=== PATIENT | female | born 1990 | race Caucasian/White ===

== ENCOUNTER 2016-04-11 19:27 | Emergency (ER) | payer OTHER ==
[~2016-04-11] VITALS: Ht 165.1 cm; Wt 99.8 kg
[~2016-04-11 19:27] MED LIST: ABILIFY 2MG2 MG PO; ATIVAN0.5 MG PO; AUGMENTIN 875-1 EACH PO; BACTRIM DS 8001 TAB PO; CIPRO 500MG (E500 MG PO; CIPRO 500MG TA500 MG PO; CIPRO500 MG PO; ENDOCET 325 MG-1 TA1 PO; HYDROCODON-ACET15 ML PO; HYDROCODONE-ACE15 ML PO; HYDROCODONE/ACE1 TA1 PO; MACROBID100 MG PO; MELATONIN5 M3 PO; NASONEX0.05 MG/Ac IN; NORCO 325 MG-51 TAB PO; NOVAPLUS V0.09 MG/Ac INH; ONDANSETRON8 M1 PO; OXYBUTYNIN CHLO10 MG PO; PANTOPRAZOLE SO40 MG PO; PERCOCET 325 MG1 TA2 PO; PERCOCET 5-3251 EACH PO; ROBITUSSIN W/CO10 ML PO; TORADOL10 MG PO; TYLENOL #31 TAB PO; VITAMIN D50000 IU PO; ZOFRAN 4 MG TABL4 MG PO; ZOFRAN ODT4 MG SL
--- NOTE | 2016-04-11 19:57 | ED THROAT/DENTAL COMPLAINT ---
History of Present Illness General Chief Complaint: Sore Throat, Dental Pain Stated Complaint: SORE THROAT Source: patient Exam Limitations: no limitations Vital Signs & Intake/Output Vital Signs & Intake/Output Vital Signs Date Time Temp Pulse Resp B/P Pulse O2 O2 Flow FiO2 Ox Delivery Rate 04/11 Room Air 04/11 1930 100.4 114 18 146/83 96 Room Air Allergies Coded Allergies: ceftriaxone (Intermediate, THROAT TIGHTNESS 08/27/15) tramadol (Intermediate, THROAT FELT ITCHY, DRY EYES 08/27/15) adhesive tape (Mild, REDNESS 08/27/15) latex (Mild, RASH 08/27/15) Iodinated Contrast Media - Oral and (IODINATED CONTRAST MEDIA - IV DYE) (SHAKING , VOMITING AND RASH 08/27/15) ibuprofen (DIARRHEA, SEVERE ABD PAIN 08/27/15) nitrofurantoin (VOMITING, NOT EFFECTIVE 08/27/15) cyclobenzaprine (Severe, HALLUCINATIONS 08/27/15) Triage Note: PT TO TRIAGE WITH C/O THROAT PAIN 8/10, UNABLE TO SWALLOW DUE TO PAIN, FEVER. TEMP 100.4 IN TRIAGE. PT WAS SEEN AT [facility] TODAY, STREP TEST WAS NEGATIVE, AND PT GOT RX FOR AMOXICILLIN. Triage Nurses Notes Reviewed? yes Onset: Abrupt Duration: day(s): (2), constant, continues in ED Timing: recent history Injury Environment: home Severity: moderate, severe No Modifying Factors: none : No Patient currently breastfeeds: No HPI: 25-year-old female comes into emergency room for evaluation of sore throat is been going on for the past 2 days. Patient was seen at yesterday and given amoxicillin tablets. Patient has not been able to swallow them. Some spitting up of phlegm. Sharp pain. Right side of throat. Associated fever. Denies any vomiting. Hurts to swallow. Denies any other associated symptoms. (DANIS LACY) Reconcile Medications Amoxicillin 400 MG/5 ML SUSP.RECON 10 ML PO BID STREP Amoxicillin/Potassium Clav (Augmentin 875-125 Tablet) 1 EACH TABLET 1 TAB PO BID dental Aripiprazole (Abilify) 2 MG TAB 1 TAB PO TID BIPOLAR Hydrocodone/Acetaminophen (Hycet 7.5 MG-325 MG/15 Ml Soln) 7.5 MG-325 MG/15 ML SOLUTION 10 ML PO Q4-6 PRN PAIN Hydrocodone/Acetaminophen (Hydrocodone-Acetamin 5-163/7.5) 5 MG-163 MG/7.5 ML ( 7.5 ML) SOLUTION 5-10 ML PO Q6P PRN PAIN Hydrocodone/Acetaminophen (Hydrocodon-Acetamin 7.5-325/15) 15 ML SOLUTION 0.5- 1 TBSP PO Q6P PRN pain Oxycodone HCl/Acetaminophen (Percocet 5-325 MG Tablet) 1 EACH TABLET 1 TAB PO BID PRN breakthrough pain (CLYDE WILSON,LATOYA) Past History Travel History Traveled to [place] past 21 day No Medical History Any Pertinent Medical History? see below for history Neurological: NONE EENT: NONE Cardiovascular: NONE Respiratory: asthma Gastrointestinal: PANCREATITIS Hepatic: SLUDGE IN GALLBLADDER Renal: RT HYDRONEPHROSIS Musculoskeletal: NONE Psychiatric: anxiety, substance abuse, mood disorder Endocrine: NONE Blood Disorders: NONE Cancer(s): NONE EMT DISPATCHER/Reproductive: NONE, states unable to get has tried. History of MRSA: No History of VRE: No History of CDIFF: No Surgical History Surgical History: KIDNEY STENTS RIGHT URETER RECONSTRUCTION Psychosocial History Who do you live with Family Services at Home None What is your primary language Spanish Tobacco Use: Current Daily Use Daily Tobacco Use Amount/Type: => 5 Cigarettes daily Family History Family History, If Any: FATHER FH: hypertension BROTHER, Age 10-15. FH: hypertension AUNT FH: liver cancer Kidney stone Urinary tract obstruction AUNT NO 2 FH: breast cancer Hx Contributory? No (DANIS LACY) Review of Systems Review of Systems Constitutional: Reports: see HPI. EENTM: Reports: see HPI. Respiratory: Reports: no symptoms. Cardiovascular: Reports: no symptoms. GI: Reports: no symptoms. Genitourinary: Reports: no symptoms. Musculoskeletal: Reports: no symptoms. Skin: Reports: no symptoms. Neurological/Psychological: Reports: no symptoms. Hematologic/Endocrine: Reports: no symptoms. Immunologic/Allergic: Reports: no symptoms. All Other Systems: Reviewed and Negative (DANIS LACY) Physical Exam Physical Exam General Appearance: well developed/nourished, alert, awake, comfortable, mild distress Head: atraumatic, normal appearance Eyes: Bilateral: normal appearance. Nose: normal inspection Mouth/Throat: pharyngeal erythema, right tonsil 2+, swollen, erythematous, exudate,, Uvula midline Neck: normal inspection, lymphadenopathy (R) Cardiovascular/Respiratory: regular rate/rhythm, no respiratory distress Back: normal inspection Neurologic/Psych: awake, alert, oriented x 3, normal gait, normal mood/affect Skin: intact, normal color Core Measures ACS in differential dx? No Severe Sepsis Present: No Septic Shock Present: No (DANIS LACY) Progress Differential Diagnosis: aspirated tooth, carious tooth, epiglottitis, Ludwigs angina, meningitis, odontogenic abscess, george-tonsillar abscess, pharyngeal for. body, stomatitis/gingivitis, strep pharyngitis, tooth fracture Plan of Care: Orders Procedure Date/time Status HUMAN BETA HCG SCREEN 04/11 1955 Complete CBC WITHOUT DIFFERENTIAL 04/11 1955 Complete BASIC METABOLIC PANEL 04/11 1955 Complete THROAT CULTURE W/QUICK STREP 04/11 1928 Complete Laboratory Tests 04/11/16 2000: Anion Gap 11, Estimated GFR > 60, BUN/Creatinine Ratio 11.4, Glucose 91, Calcium 8.6, Total Beta HCG NEGATIVE, CBC w Diff NO MAN DIFF REQ, RBC 4.83, MCV 91.9, MCH 30.6, RDW 13.8, MPV 7.9, Gran % 70.4, Lymphocytes % 22.4, Monocytes % 6.8, Eosinophils % 0, Basophils % 0.4, Absolute Granulocytes 6.0, Absolute Lymphocytes 1.9, Absolute Monocytes 0.6, Absolute Eosinophils 0, Absolute Basophils 0, PUBS MCHC 33.3 Diagnostic Imaging: Viewed by Me: CT Scan. Discussed w/RAD: CT Scan. Radiology Impression: EXAM TYPE: CAT - CT NECK W IV CONTRAST EXAMINATION: CT NECK WITH CONTRAST CLINICAL INFORMATION: Tonsillitis versus abscess. Unilateral swelling right tonsil. COMPARISON: None TECHNIQUE: Axial images of the neck were obtained with intravenous contrast. 94 mL Optiray 320 were administered without adverse reaction reported. Reformatted images were reviewed. DLP: 440 mGy-cm FINDINGS: There is mild asymmetric fullness of right tonsillar tissue in the oropharynx. No discrete/drainable fluid collection is noted. No other areas of pharyngeal or laryngeal swelling. The bilateral parotid glands, submandibular glands, and thyroid gland are unremarkable. Scattered cervical lymph nodes, with nonspecific prominence of the right jugulodigastric node, measuring 2.2 cm. No retropharyngeal soft tissue swelling. Visualized portions of the brain are unremarkable. The orbits are unremarkable. Visualized portions of the lungs and mediastinum are unremarkable. No acute osseous abnormalities. IMPRESSION: 1. Mild asymmetric fullness of right oropharyngeal tonsillar tissue, suspicious for local inflammation. No evidence of discrete/drainable abscess. 2. Nonspecific enlargement of the right jugulodigastric node, measuring 2.2 cm. This may be reactive in nature. DICTATED BY: GINGER ROSALES MD DATE/TIME DICTATED:04/11/162111 MILLINERY TEACHER:MARY DATE/TIME TRANSCRIBED:04/11/162111 Comments: 04/11/2016 9:43:18 PM Patient feels much better after IV medications. No evidence of abscess. Patient just has strep tonsillitis. Able to swallow liquids. Return if any other concerns. (EDDIE COLON,DANIS) Departure Departure Disposition: HOME OR SELF CARE Condition: Stable Clinical Impression Primary Impression: Strep tonsillitis Referrals: PATIENT HAS NO PRIMARY CARE DR (PCP/Family) Additional Instructions: Take amoxicillin as prescribed. Rest. Drink plenty of fluids. Motrin. Follow-up with primary care . Please go over all results of today's visit with your primary care doctor. Contact your primary care doctor to let them know you were here in the emergency room. There may be nonspecific findings which may not be related to your visit today here in the emergency room but may require further evaluation and chronic monitoring by your primary care doctor. If you had a laceration today the chance of foreign body always remains. You should follow-up with your primary care doctor for recheck in 3-5 days for a wound check. If you had an x-ray done there is a chance that a fracture could have been missed on initial read and you should follow-up with your primary care doctor for repeat x-rays if symptoms persist. If your blood pressure was elevated here in the emergency room please have rechecked by her primary care doctor within the next 48 hours by your primary care doctor. If you were prescribed a narcotic here in the emergency room or any type of controlled substances you're not allowed to drive while taking this medication or operate any type of heavy machinery. Narcotics can make you feel lightheaded dizziness nausea and can cause constipation. You may need to miner pick a stool softener. Thank you for choosing [facility] emergency room. Please return to the emergency room immediately if you have any other concerns worsening of symptoms. Departure Forms: Customer Survey General Discharge Information (DANIS LACY) Departure Prescriptions: Current Visit Scripts Hydrocodone/Acetaminophen (Hycet 7.5 MG-325 MG/15 Ml Soln) 10 ML PO Q4-6 PRN PAIN #100 ML Amoxicillin 10 ML PO BID #200 ML Hydrocodone/Acetaminophen (Hydrocodone-Acetamin 5-163/7.5) 5-10 ML PO Q6P PRN PAIN #100 ML PA/FUR COMBER Co-Sign Statement Statement: ED Attending supervision documentation- [] I saw and evaluated the patient. I have also reviewed all the pertinent lab results and diagnostic results. I agree with the findings and the plan of care as documented in the PA's/FUR COMBER's documentation. [X] I have reviewed the ED Record and agree with the PA's/FUR COMBER's documentation. [] Additions or exceptions (if any) to the PAs/FUR COMBER's note and plan are summarized below: [] (CLYDE WILSON,LATOYA)
[2016-04-11 20:07] LABS: ABSOLUTE BASOPHIL COUNT 0 /CUMM (0.0-0.2); ABSOLUTE EOSINOPHIL COUNT 0 /CUMM (0.0-0.7); ABSOLUTE LYMPH COUNT 1.9 /CUMM (1.2-3.4); ABSOLUTE MONOCYTE COUNT 0.6 /CUMM (0.10-0.60); BASOPHIL % 0.4 % (0.0-2.0); EOSINOPHIL % 0 % (0-5); GRANULOCYTE % 70.4 % (42.2-75.2); HEMATOCRIT 44.4 % (37-47); MEAN CORPUSCULAR HGB 30.6 PG (27.0-31.0); MEAN CORPUSCULAR HGB CONC 33.3 G/DL (33.0-37.0); MEAN CORPUSCULAR VOLUME 91.9 FL (81.0-99.0); MEAN PLATELET VOLUME 7.9 FL (7.4-10.4); PLATELET COUNT 225 /CUMM (130-400); RBC DISTRIBUTION WIDTH 13.8 % (11.5-14.5); RED BLOOD CELL CT 4.83 /CUMM (4.20-5.40); WHITE BLOOD CELL COUNT 8.6 /CUMM (4.8-10.8)
--- NOTE | 2016-04-11 21:23 | CT SCAN REPORT ---
EXAMINATION: CT NECK WITH CONTRAST CLINICAL INFORMATION: Tonsillitis versus abscess. Unilateral swelling right tonsil. COMPARISON: None TECHNIQUE: Axial images of the neck were obtained with intravenous contrast. 94 mL Optiray 320 were administered without adverse reaction reported. Reformatted images were reviewed. DLP: 440 mGy-cm FINDINGS: There is mild asymmetric fullness of right tonsillar tissue in the oropharynx. No discrete/drainable fluid collection is noted. No other areas of pharyngeal or laryngeal swelling. The bilateral parotid glands, submandibular glands, and thyroid gland are unremarkable. Scattered cervical lymph nodes, with nonspecific prominence of the right jugulodigastric node, measuring 2.2 cm. No retropharyngeal soft tissue swelling. Visualized portions of the brain are unremarkable. The orbits are unremarkable. Visualized portions of the lungs and mediastinum are unremarkable. No acute osseous abnormalities. IMPRESSION: 1. Mild asymmetric fullness of right oropharyngeal tonsillar tissue, suspicious for local inflammation. No evidence of discrete/drainable abscess. 2. Nonspecific enlargement of the right jugulodigastric node, measuring 2.2 cm. This may be reactive in nature.
[2016-04-11] MEDS ORDERED: AMOXICILLI400 MG/51 PO (21:33)
[2016-04-11] MEDS ORDERED: HYDROCODONE AC PO (21:37)
[2016-04-11 21:55] VITALS: BP 140/58
[2016-04-11] MEDS ORDERED: HYCET 7.5 MG-3473 ML PO (23:40)
== END 2016-04-11 21:56 ==
LOC: ERH 19:27
PROVIDERS: Physician Assistant Medical
DX: J03.00 Acute streptococcal tonsillitis, unspecified (principal)
CPT/HCPCS: 96374; 96375; J1100; J1885

== ENCOUNTER 2016-04-26 11:36 | Emergency (ER) | payer OTHER ==
[~2016-04-26] VITALS: Ht 165.1 cm; Wt 97.5 kg
[~2016-04-26 11:36] MED LIST changes: +AMOXICILLI400 MG/51 PO; +HYCET 7.5 MG-3473 ML PO; +HYDROCODONE AC PO
[2016-04-26 11:49] VITALS: BP 140/93
--- NOTE | 2016-04-26 12:12 | ED THROAT/DENTAL COMPLAINT ---
History of Present Illness General Chief Complaint: Sore Throat, Dental Pain Stated Complaint: TOOTH PAIN Source: patient, old records Exam Limitations: no limitations Vital Signs & Intake/Output Vital Signs & Intake/Output Vital Signs Date Time Temp Pulse Resp B/P Pulse O2 O2 Flow FiO2 Ox Delivery Rate 04/26 1149 97.7 119 16 140/93 97 Room Air Allergies Coded Allergies: ceftriaxone (Intermediate, THROAT TIGHTNESS 08/27/15) tramadol (Intermediate, THROAT FELT ITCHY, DRY EYES 08/27/15) adhesive tape (Mild, REDNESS 08/27/15) latex (Mild, RASH 08/27/15) Iodinated Contrast Media - Oral and (IODINATED CONTRAST MEDIA - IV DYE) (SHAKING , VOMITING AND RASH 08/27/15) ibuprofen (DIARRHEA, SEVERE ABD PAIN 08/27/15) nitrofurantoin (VOMITING, NOT EFFECTIVE 08/27/15) cyclobenzaprine (Severe, HALLUCINATIONS 08/27/15) Reconcile Medications Aripiprazole (Abilify) 2 MG TABLET 1 TAB PO DAILY BIPOLAR (Reported) Hydrocodone/Acetaminophen (Vicodin 5-300 MG Tablet) 5 MG-300 MG TABLET 1 TAB PO Q6P PRN severe pain Triage Note: PT STATES SHE HAS TOOTH PAIN AND HAS BEEN TAKING TYLENOL AND MOTRIN. PT STATES SHE IS NOT SUPPOSE TO TAKE MOTRIN BUT SHE DID BECAUSE HER PAIN IS SO BAD. Triage Nurses Notes Reviewed? yes Onset: Last week Duration: day(s):, constant, continues in ED Timing: recent history Injury Environment: home Severity: moderate Modifying Factors: Improves With: medication. Worsens With: eating, movement. LMP (ages 10-50): unknown : No Patient currently breastfeeds: No HPI: Several weeks prior to admission patient has had issues with her wisdom teeth that are erupting. It is now causing pain to the proximal tooth that it impacts worse with chewing improved with analgesic medication. She denies fever chills nausea vomiting diarrhea abdominal pain chest pain shortness of breath headache dysuria rash bleeding . Past History Travel History Traveled to [place] past 21 day No Medical History Any Pertinent Medical History? see below for history Neurological: NONE EENT: NONE Cardiovascular: NONE Respiratory: asthma Gastrointestinal: PANCREATITIS Hepatic: SLUDGE IN GALLBLADDER Renal: RT HYDRONEPHROSIS Musculoskeletal: NONE Psychiatric: anxiety, substance abuse, mood disorder Endocrine: NONE Blood Disorders: NONE Cancer(s): NONE FELT PULLER/Reproductive: NONE, states unable to get has tried. History of MRSA: No History of VRE: No History of CDIFF: No Surgical History Surgical History: KIDNEY STENTS RIGHT URETER RECONSTRUCTION Psychosocial History Who do you live with Family Services at Home None What is your primary language Slovak Tobacco Use: Current Daily Use Daily Tobacco Use Amount/Type: => 5 Cigarettes daily ETOH Use: denies use Illicit Drug Use: marijuana Family History Family History, If Any: FATHER FH: hypertension BROTHER, Age 10-15. FH: hypertension AUNT FH: liver cancer Kidney stone Urinary tract obstruction AUNT NO 2 FH: breast cancer Hx Contributory? No Review of Systems Review of Systems Constitutional: Reports: no symptoms. EENTM: Reports: see HPI, tooth pain. Respiratory: Reports: no symptoms. Cardiovascular: Reports: no symptoms. GI: Reports: no symptoms. Genitourinary: Reports: no symptoms. Musculoskeletal: Reports: no symptoms. Skin: Reports: no symptoms. Neurological/Psychological: Reports: no symptoms. Hematologic/Endocrine: Reports: no symptoms. Immunologic/Allergic: Reports: no symptoms. All Other Systems: Reviewed and Negative Physical Exam Physical Exam General Appearance: well developed/nourished, alert, awake, anxious, mild distress Head: atraumatic, normal appearance Eyes: Bilateral: normal appearance, PERRL, EOMI. Ears: Bilateral: canal normal, Tympanic normal. Nose: normal inspection Mouth/Throat: dental tenderness Neck: normal inspection, supple, full range of motion, trachea midline Cardiovascular/Respiratory: normal breath sounds, normal peripheral pulses, regular rate/rhythm, no respiratory distress Back: normal inspection, normal range of motion, no vertebral tenderness Neurologic/Psych: no motor/sensory deficits, awake, alert, oriented x 3, normal gait, normal mood/affect, pre assembly wirer II-XII nml as tested Skin: intact, normal color, warm/dry Core Measures ACS in differential dx? No Severe Sepsis Present: No Septic Shock Present: No Progress Differential Diagnosis: carious tooth, odontogenic abscess, tooth fracture Plan of Care: dental f/u analgesia Departure Departure Time of Disposition: 1214 Disposition: HOME OR SELF CARE Condition: Stable Clinical Impression Primary Impression: Dental impaction Referrals: PATIENT HAS NO PRIMARY CARE DR (PCP/Family) Departure Forms: Customer Survey General Discharge Information Prescriptions: Current Visit Scripts Hydrocodone/Acetaminophen (Vicodin 5-300 MG Tablet) 1 TAB PO Q6P PRN severe pain #15 TAB
[2016-04-26] MEDS ORDERED: ABILIFY2 MG PO (12:19)
[2016-04-26] MEDS ORDERED: VICODIN 5-3001 EACH PO (12:20)
== END 2016-04-26 13:07 ==
LOC: ERH 11:36
DX: K01.1 Impacted teeth (principal)